=== PATIENT | male | born 1970 | race Caucasian/White ===

== ENCOUNTER 2016-06-22 14:05 | Emergency (ER) | payer SELFPAY ==
--- NOTE | 2016-06-22 15:16 | PHYS DOC ---
Past Medical History Past Medical History: No Pertinent History Past Surgical History: No Surgical History Alcohol Use: None Drug Use: None Adult General Chief Complaint Chief Complaint: CELLULITIS HPI HPI Patient is a 46 year old male who presents with rash. Patient reports he initially had a rash started to his back prepped 30 days ago. 2 days ago he noticed a rash to his left neck; since then he has also developed rash to his right forearm. He has a raised lesion near the angle of his left mandible appears to be an abscess. Patient reports he cut this on with a utility knife to try to drain it. He does report he doesn't purulent discharge when he cut himself. He denies any fever. He has not taken anything for symptoms at home. He has had multiple episodes of this rash in the past. Review of Systems Review of Systems Constitutional: Denies fever or chills Eyes: Denies change in visual acuity or eye pain HENT: Denies nasal congestion or sore throat. Abscess at angle of mandible on L , rash to lateral neck Respiratory: Denies cough or shortness of breath Cardiovascular: Denies chest pain GI: Denies abdominal pain, nausea, vomiting, bloody stools or diarrhea : Denies dysuria or hematuria Musculoskeletal: Denies back pain or joint pain Integument: Redness to back, rash to neck and R forearm Neurologic: Denies headache, focal weakness or sensory changes Current Medications Current Medications Current Medications Medications (Trade) Dose Ordered Sig/Kristen Start Time Stop Time Status Last Admin Dose Admin Clindamycin HCl (Cleocin) 300 mg 1X ONCE 06/22/16 15:30 06/22/16 15:31 DC 06/22/16 15:49 300 MG Lidocaine/ Epinephrine (Xylocaine 1%-Epi 1:100,000) 20 ml 1X ONCE 06/22/16 15:30 06/22/16 15:31 DC 06/22/16 15:50 20 ML Naproxen (Naprosyn) 500 mg 1X ONCE 06/22/16 15:30 06/22/16 15:31 DC 06/22/16 15:49 500 MG Prednisone (Prednisone) 60 mg 1X ONCE 06/22/16 15:30 06/22/16 15:31 DC 06/22/16 15:49 60 MG Allergies Allergies Allergies Coded Allergies Type Severity Reaction Last Updated Verified No Known Drug Allergies 08/05/13 No Physical Exam Physical Exam Constitutional: Well developed, well nourished, no acute distress, non-toxic appearance HENT: Normocephalic, atraumatic, bilateral external ears normal. Raised 1cm indurate lesion to angle of mandible on L with central fluctuance; scattered < 1cm raised red lesions to L lateral neck Eyes: EOMI, conjunctiva normal, no discharge Neck: Normal range of motion, no stridor Cardiovascular: Tachycardic, regular rhythm, no murmur Lungs & Thorax: Bilateral breath sounds clear to auscultation Abdomen: Bowel sounds normal, soft, non-distended, no TTP Skin: Warm, dry. Scattered <1cm raised red lesions to R forearm. Upper back mildly erythematous. Extremities: No obvious deformity, no edema Neurologic: Alert and oriented X 3, no gross deficits noted Current Patient Data Vital Signs Vital Signs Date Time Temp Pulse Resp B/P Pulse Ox O2 Delivery O2 Flow Rate FiO2 06/22/16 15:51 100 16 124/87 99 Room Air 06/22/16 14:15 97.9 97.9 EKG EKG [] Radiology/Procedures Radiology/Procedures [] Course & Med Decision Making Course & Med Decision Making Pertinent Labs and Imaging studies reviewed. (See chart for details) Patient is 46-year-old male who presents with rash and apparent abscess. Rash appears to be atopic dermatitis. Lesion to angle of mandible appears to be abscess. Dose of steroids, clindamycin, naproxen ordered for patient. Performed I&D on abscess. Patient discharged home with rx for prednisone taper and course of clindamycin. I discussed the importance of following up with a PCP (patient given list of local providers) and dermatology. Discharged home with instructions to follow up in 2 days for reassessment and strict return precautions. Dragon Disclaimer Dragon Disclaimer This electronic medical record was generated, in whole or in part, using a voice recognition dictation system. Departure Departure Impression: Primary Impression: Abscess Additional Impression: Atopic dermatitis Disposition: HOME, SELF-CARE Condition: STABLE Referrals: NON,STAFF (PCP) SPARKLE BRIDGES MD Patient Instructions: Cellulitis, Eczema Additional Instructions: Thank you for allowing us to provide care today in the Emergency Department. Take the provided medication as directed. You will need to be seen again in two days for reevaluation. You can go to urgent care, see a primary care physician, or return to the Emergency Department. Schedule a follow up appointment with a primary care doctor using the provided list. Schedule an appointment with a tub chucker (Dr. Bridges) using the provided contact information. Return promptly to the Emergency Department if you develop any new or concerning symptoms. Scripts Prednisone 10 Mg [id number] Mg PO UD PREDNISONE TAPER #39 TAB Ref 0 Take 3 tablets by mouth twice a day for 3 days, then take 2 tablets by mouth twice a day for 3 days, then take 1 tablet by mouth twice a day for 3 days, then take 1 tablet by mouth daily x 3 days, then stop. Prov:ANA LILIA DOHERTY MD 06/22/16 Clindamycin Hcl 300 Mg Capsule1 Cap PO TID #21 CAP Prov:ANA LILIA DOHERTY MD 06/22/16 PROCEDURE Procedure Indication: abscess Procedure: The patient was positioned appropriately. Local anesthesia was achieved with 1% lidocaine. An incision was then made over the apex of the lesion and 2ml bloody purulent material was expressed. The drainage cavity was no sufficiently large to be packed. The patients tetanus status is up to date ( ~3 years ago). The patient tolerated the procedure well. Complications: none. Problem Qualifiers ANA LILIA DOHERTY MD Jun 22, 2016 15:16
[2016-06-22] MEDS ORDERED: LIDOCAINE 1%/EPI 1:100,000 20 ML VIAL. IJ ONE (15:30)
[2016-06-22] MEDS ORDERED: CLINDAMYCIN HCL 150 MG CAPSULE PO ONE (15:30)
[2016-06-22] MEDS ORDERED: NAPROXEN 500 MG TABLET PO ONE (15:30)
[2016-06-22] MEDS ORDERED: PREDNISONE 20 MG TABLET PO ONE (15:30)
[2016-06-22 15:51] VITALS: BP 124/87
[2016-06-22] MEDS ORDERED: CLIN300C86 PO (16:45)
[2016-06-22] MEDS ORDERED: PRED-220 PO (16:45)
== END 2016-06-22 16:57 | disposition home or self-care (01) ==
LOC: ER 14:05
DX: L02.413 Cutaneous abscess of right upper limb (principal); L20.9 Atopic dermatitis, unspecified
CPT/HCPCS: 10060; 99284; J3490; J7512

== ENCOUNTER 2020-11-25 12:34 | Emergency (ER) | payer SELFPAY ==
[~2020-11-25] VITALS: Ht 190.5 cm; Wt 84.0 kg
[~2020-11-25 12:34] MED LIST: CLIN300C9 PO; PRED-220 PO
[2020-11-25] MEDS ORDERED: hydrOXYzine 25 MG TABLET PO STA (13:31)
[2020-11-25] MEDS ORDERED: FAMOTIDINE 20 MG TABLET. PO ONE (13:45)
[2020-11-25] MEDS ORDERED: DEXAMETHASONE SOD PHOS 20 MG/5 ML VIAL. IM ONE (13:45)
[2020-11-25] MEDS ORDERED: FAMO20TA5 PO (14:52)
[2020-11-25] MEDS ORDERED: HYDR25TA PO (14:52)
[2020-11-25] MEDS ORDERED: PRED-220 PO (14:52)
--- NOTE | 2020-11-25 14:52 | PHYS DOC ---
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 Patient's states she had a yeast infection and believes she gave patient this rash from her yeast infection. Patient himself states he believes this is cellulitis because he has had this before. Patient denies any new soaps, laundry detergents, new foods. states patient spends most of his time in the yard. Review of Systems: Review of Systems: Constitutional: Denies fever or chills. [] Musculoskeletal: Denies back pain or joint pain. [] Integument: Reports pruritic rash Neurologic: Denies headache, focal weakness or sensory changes. [] Psychiatric: Denies depression or anxiety. [] Heart Score: C/O Chest Pain: N/A Risk Factors: Risk Factors: DM, Current or recent (<one month) smoker, HTN, HLP, family history of CAD, obesity. Risk Scores: Score 0 - 3: 2.5% MACE over next 6 weeks - Discharge Home Score 4 - 6: 20.3% MACE over next 6 weeks - Admit for Clinical Observation Score 7 - 10: 72.7% MACE over next 6 weeks - Early Invasive Strategies Current Medications: Current Medications Medications (Trade) Dose Ordered Sig/Kristen Start Time Stop Time Status Last Admin Dose Admin Dexamethasone Sodium Phosphate (Decadron) 10 mg 1X ONCE 11/25/20 13:45 11/25/20 13:46 DC 11/25/20 13:50 10 MG Famotidine (Pepcid) 20 mg 1X ONCE 11/25/20 13:45 11/25/20 13:46 DC 11/25/20 13:50 20 MG Hydroxyzine HCl (Atarax) 25 mg 1X STAT 11/25/20 13:31 11/25/20 13:35 DC 11/25/20 13:49 25 MG Allergies: Allergies: Allergies Coded Allergies Type Severity Reaction Last Updated Verified No Known Drug Allergies 08/05/13 No Physical Exam: PE: Constitutional: Well developed, well nourished, no acute distress, non-toxic appearance. [] Skin: Bilateral upper extremities with mild erythematous rash, with linear presentation, similar rash on the face, no eye involvement. Back: No tenderness, no CVA tenderness. [] Extremities: No tenderness, no cyanosis, no clubbing, ROM intact, no edema. [] Neurologic: Alert and oriented X 3, normal motor function, normal sensory function, no focal deficits noted. [] Psychologic: Affect normal, judgement normal, mood normal. [] Current Patient Data: Vital Signs: Vital Signs Date Time Temp Pulse Resp B/P (MAP) Pulse Ox O2 Delivery O2 Flow Rate FiO2 11/25/20 12:51 98.8 104 18 147/92 (110) 98 Room Air 98.8 EKG: EKG: [] Radiology/Procedures: Radiology/Procedures: [] Course & Med Decision Making: Course & Med Decision Making Pertinent Labs and Imaging studies reviewed. (See chart for details) Patient is contact dermatitis, unknown cause but likely poison lea or poison oak considering he spends most of his time doing yard work. Discharged on tapered dose of prednisone, Pepcid and hydroxyzine. Follow-up with PCP in 1 week Spencer Disclaimer: Spencer Disclaimer: This electronic medical record was generated, in whole or in part, using a voice recognition dictation system. Departure Departure Impression: Primary Impression: Contact dermatitis Qualified Codes: L24.6 - Irritant contact dermatitis due to food in contact with skin Disposition: 01 HOME / SELF CARE / HOMELESS Condition: STABLE Referrals: NO PCP (PCP) Follow-up with your primary care doctor in 1 to 2 weeks Patient Instructions: Contact Dermatitis, [id number] Additional Instructions: You have a rash, take the prescribed medications as ordered. Please follow-up with your primary care doctor in 1 to 2 weeks. Scripts Hydroxyzine Hcl (HYDROXYZINE HCL) 25 Mg Tablet 1 TAB PO TID, #90 TAB 2 Refills Prov: PATRICIO GARCIA [employer]UE[employer]SEMBLER 11/25/20 Famotidine (FAMOTIDINE) 20 Mg Tablet 20 MG PO DAILY, #14 TAB Prov: JOSEPATRICIO Sarah [employer]SEMBLER 11/25/20 Prednisone (PREDNISONE ) 10 Mg Tablet 10 MG PO UD for PREDNISONE TAPER, #39 TAB 0 Refills Take 3 tablets by mouth twice a day for 3 days, then take 2 tablets by mouth twice a day for 3 days, then take 1 tablet by mouth twice a day for 3 days, then take 1 tablet by mouth daily x 3 days, then stop. Prov: PATRICIO GARCIA APRN 11/25/20 PATRICIO GARCIA APRN Nov 25, 2020 14:52
[2020-11-25 15:15] VITALS: BP 140/86
== END 2020-11-25 15:20 | disposition home or self-care (01) ==
LOC: ER 12:34
DX: L24.6 Irritant contact dermatitis due to food in contact with skin (principal); F17.200 Nicotine dependence, unspecified, uncomplicated; F10.20 Alcohol dependence, uncomplicated; Y90.9 Presence of alcohol in blood, level not specified
CPT/HCPCS: 96372; 99283; J1100